=== PATIENT | female | born 1935 | race Two or more races ===

== ENCOUNTER 2019-05-22 18:31 | Inpatient (IN) | payer MEDICARE, OTHER ==
[~2019-05-22] VITALS: Ht 149.9 cm; Wt 46.7 kg
[2019-05-22] MEDS ORDERED: FENO145T21 PO (18:58)
[2019-05-22] MEDS ORDERED: DILT180C66 PO (18:58)
[2019-05-22] MEDS ORDERED: DONE5TAB34 PO (18:58)
[2019-05-22] MEDS ORDERED: ASPI81TA31 PO (18:58)
[2019-05-22] MEDS ORDERED: LEVO50TA8 PO (18:58)
[2019-05-22] MEDS ORDERED: FENO134C PO (18:58)
--- NOTE | 2019-05-22 19:21 | NUR ---
Xray at bedside.
[2019-05-22 19:31] LABS: BASOPHILS # (AUTO) 0.1 K/uL (0.0-8.0); BASOPHILS % (AUTO) 1.2 % (0.0-2.0); EOSINOPHILS # (AUTO) 0.2 K/uL (0.0-0.7); EOSINOPHILS % (AUTO) 3.4 % (0.0-7.0); HEMATOCRIT 37.8 % (31.2-41.9); HEMOGLOBIN 12.3 g/dL (10.9-14.3); LYMPHOCYTES # (AUTO) 2.4 K/uL (20.0-40.0); LYMPHOCYTES % (AUTO) 46.7 % (20.5-51.5); MEAN CORPUSCULAR HEMOGLOBIN 31.6 uug (24.7-32.8); MEAN CORPUSCULAR HGB CONC 33 g/dL (32.3-35.6); MEAN CORPUSCULAR VOLUME 97.3 fL (75.5-95.3); MONOCYTES # (AUTO) 0.4 K/uL (2.0-10.0); NEUTROPHILS # (AUTO) 2.1 K/uL (1.8-8.9); NEUTROPHILS % (AUTO) 41.7 % (38.5-71.5); PLATELET COUNT (AUTO) 253 K/uL (179-408); RED BLOOD CELL COUNT(AUTO) 3.88 MIL/uL (3.63-4.92); WHITE BLOOD COUNT (AUTO) 5.1 K/uL (3.8-11.8)
[2019-05-22 19:40] LABS: CARBON DIOXIDE 31 mmol/L (21-32); CHLORIDE 106 mmol/L (98-107); CREATININE 0.9 mg/dL (0.6-1.3); GLUCOSE 95 mg/dL (74-106); UREA NITROGEN, BLOOD 20 mg/dL (7-18)
[2019-05-22 19:46] LABS: ALANINE AMINOTRANSFERASE 14 U/L (14-59); ALKALINE PHOSPHATASE 53 U/L (50-136); ASPARTATE AMINOTRANSFERASE 21 U/L (15-37); BILIRUBIN,DIRECT 0.1 mg/dL (0.0-0.2); BILIRUBIN,TOTAL 0.1 mg/dL (0.2-1.0); TOTAL PROTEIN, SERUM 6.7 g/dL (6.4-8.2)
[2019-05-22 19:53] LABS: ETHANOL < 3 MG/DL (0-0)
[2019-05-22 19:57] LABS: ACETAMINOPHEN < 2.0 ug/mL (10-30)
[2019-05-22 20:03] LABS: *BILIRUBIN,URIN NEGATIVE (NEGATIVE); *BLOOD, URINE 1+ (NEGATIVE); *CLARITY,URINE HAZY (CLEAR); *COLOR,URINE YELLOW (YELLOW); *KETONES,URINE NEGATIVE (NEGATIVE); *UROBILINOGEN,URINE 0.2 E.U./dl (NORMAL); LEUKOCYTE ESTERASE ,URINE NEGATIVE (NEGATIVE); NITRITE, URINE NEGATIVE (NEGATIVE); UGLUCOSE NEGATIVE (NEGATIVE)
[2019-05-22 20:14] LABS: BACTERIA,URINE FEW /HPF (NONE SEEN); SQUAMOUS EPITHELIAL CELL,UR FEW /HPF (NONE SEEN); WBC,URINE 0-3 /HPF (0-3)
[2019-05-22 20:18] LABS: *AMPHETAMINE, URINE NEGATIVE (NEGATIVE); *BARBITURATE, URINE NEGATIVE (NEGATIVE); *CANNABINOID, URINE NEGATIVE (NEGATIVE); *COCCAINE, URINE NEGATIVE (NEGATIVE); *OPIATE, URINE NEGATIVE (NEGATIVE); *PHENCYCLIDINE SCREEN,URINE NEGATIVE (NEGATIVE)
--- NOTE | 2019-05-22 20:56 | NUR ---
Report given to JULIANNE Figueroa
--- NOTE | 2019-05-22 21:24 | NUR ---
Patient transported to MHU in stable condition.
[2019-05-22 21:30] VITALS: BP 162/47
[2019-05-22] MEDS ORDERED: MAG HYDROX/AL HYDROX/SIMETH 30 ML LIQUID UDC PO PRN (22:00)
[2019-05-22] MEDS ORDERED: MAGNESIUM HYDROXIDE 30 ML LIQUID UDC PO PRN (22:00)
[2019-05-22] MEDS ORDERED: BLOOD SUGAR DIAGNOSTIC 1 EACH STRIP VI ONE (22:00)
[2019-05-22] MEDS ORDERED: TEMAZEPAM 7.5 MG CAPSULE PO PRN (22:00)
[2019-05-22] MEDS ORDERED: LORAZEPAM 1 MG TABLET PO PRN (22:00)
--- NOTE | 2019-05-22 22:29 | NUR ---
Received to care, at 2120, on a 72 hour hold, for danger to self, from the emergency room, a transfer from [facility]. According to the hold, she attempted to commit suicide on 05/21/19 by hanging self. She also has a previous history or multiple suicide attempts, including an attempted overdose, 1 month ago. Upon arrival on the unit, she was pleasant and cooperative. She admitted to attempting to hang herself from the lemon tree, in her front yard. She stated she did this because her daughter in law is "mean" to her, and told her to "get out". She said she then became despondent, prompting the suicide attempt. She also admitted to making previous attempts. She admitted to still feeling suicidal, but agreed to contract for safety, while in the hospital. Upon arrival, a 1 to 1 sitter was assigned, to ensure safety. She was assisted with a shower, and in now in bed, with sitter at bedside. Pt was advised of her hold. patients rights booklet was provided. no distress noted. will continue to monitor closely.
--- NOTE | 2019-05-23 06:00 | NUR ---
slept 3 hours total. is now awake. 1 to 1 sitter remains at bedside. no distress noted.
[2019-05-23] MEDS: LEVOTHYROXINE SODIUM 50 MCG TABLET PO SCH (06:52)
[2019-05-23 07:30] VITALS: BP 132/45
[2019-05-23] MEDS: ASPIRIN 81 MG TAB.CHEW PO SCH (08:49)
[2019-05-23] MEDS: FENOFIBRATE NANOCRYSTALLIZED 145 MG TABLET PO SCH (08:49)
[2019-05-23] MEDS: DILTIAZEM HCL CD 120 MG CAP.SR.24H PO SCH (08:50)
[2019-05-23] MEDS ORDERED: DONEPEZIL 5 MG TABLET PO SCH (09:00)
--- NOTE | 2019-05-23 10:54 | NUR ---
Initial Discharge Note: Patient currently lives with her son, Roberto Carlos Lovell ([phone]) at [address] [place] [address] and would like to return after discharge. retail worker will continue to work with pt, family, and MD to ensure a safe and proper discharge plan.
--- NOTE | 2019-05-23 10:55 | NUR ---
Family Contact: Deputy Manager spoke with patient son, Roberto Carlos Lovell ([phone]) and primary caregiver and collected collateral information. Roberto Carlos shared that pt lives with him and his family and will return when stable. Roberto Carlos shared that she is going to file for conservatorship. Roberto Carlos stated that pt has prior suicide attempt and pt has a long history of depression.
--- NOTE | 2019-05-23 10:57 | NUR ---
Firearms Report ([employer]): Windows Architect completed and submitted a [employer] firearms report for 5150 grave disability and danger to self certification. A copy of report has been placed in patient chart.
[2019-05-23 16:25] VITALS: BP 133/46
[2019-05-23] MEDS: MIRTAZAPINE 15 MG TABLET PO SCH (20:08)
[2019-05-23] MEDS: RIVASTIGMINE TARTRATE 1.5 MG CAPSULE PO SCH (20:08)
--- NOTE | 2019-05-24 03:06 | NUR ---
GPS: Sleeping soundly at this time. In no form of distress noted. Sitter at bedside as ordered. Suicide precautions maintained.
[2019-05-24] MEDS: LEVOTHYROXINE SODIUM 50 MCG TABLET PO SCH (06:50)
[2019-05-24 07:52] VITALS: BP 139/49
[2019-05-24] MEDS: FENOFIBRATE NANOCRYSTALLIZED 145 MG TABLET PO SCH (08:31)
[2019-05-24] MEDS: ASPIRIN 81 MG TAB.CHEW PO SCH (08:31)
[2019-05-24] MEDS: DILTIAZEM HCL CD 120 MG CAP.SR.24H PO SCH (08:32)
--- NOTE | 2019-05-24 08:38 | NUR ---
Family Contact: Engineer Byproduct left a voicemail for patient's son, Roberto Carlos Lovell ([phone]) regarding discharge planning. Awaiting a call back.
[2019-05-24] MEDS: RIVASTIGMINE TARTRATE 1.5 MG CAPSULE PO SCH ×2 (09:37→21:31)
[2019-05-24 16:47] VITALS: BP 137/49
[2019-05-24 19:30] VITALS: BP_SYST 129; BP_SYST 152; BP_DIAS 38; BP_DIAS 40
[2019-05-24] MEDS: ACETAMINOPHEN 325 MG TABLET PO PRN (20:07)
[2019-05-24] MEDS: MIRTAZAPINE 15 MG TABLET PO SCH (21:31)
[2019-05-25] MEDS: LEVOTHYROXINE SODIUM 50 MCG TABLET PO SCH (06:31)
--- NOTE | 2019-05-25 06:37 | NUR ---
GPS: Showered at this time with help of assigned sitter. Continues to feel depressed but denies having a plan to hurt self. Re-assured prn. Will continue to monitor.
[2019-05-25 07:30] VITALS: BP 163/44
--- NOTE | 2019-05-25 07:30 | NUR ---
1:1 sitter at the bedside. Pt is sleeping well in bed. No apparent distress noted.
[2019-05-25] MEDS: FENOFIBRATE NANOCRYSTALLIZED 145 MG TABLET PO SCH (08:44)
[2019-05-25] MEDS: ASPIRIN 81 MG TAB.CHEW PO SCH (08:44)
[2019-05-25] MEDS: RIVASTIGMINE TARTRATE 1.5 MG CAPSULE PO SCH ×2 (08:44→20:40)
[2019-05-25] MEDS: DILTIAZEM HCL CD 120 MG CAP.SR.24H PO SCH (08:46)
--- NOTE | 2019-05-25 09:30 | NUR ---
Pt placed on [facility]. Cooperative, speaks only Japanese, eating good and independently.
--- NOTE | 2019-05-25 10:30 | NUR ---
Pt taking medications without any problem. Denies any suicidal ideation.
[2019-05-25 15:12] VITALS: BP 150/47
--- NOTE | 2019-05-25 18:08 | NUR ---
GPS: patient still on suicidal precaution, patient remain free of injury, will continue monitor
[2019-05-25 20:04] VITALS: BP 137/50
[2019-05-25] MEDS: MIRTAZAPINE 15 MG TABLET PO SCH (20:40)
[2019-05-25] MEDS ORDERED: MIRTAZAPINE 15 MG TABLET PO ONE (22:15)
[2019-05-26] MEDS: LEVOTHYROXINE SODIUM 50 MCG TABLET PO SCH (06:35)
[2019-05-26 07:30] VITALS: BP_SYST 105; BP_SYST 151; BP_DIAS 49; BP_DIAS 56
[2019-05-26] MEDS: RIVASTIGMINE TARTRATE 1.5 MG CAPSULE PO SCH ×2 (08:45→20:27)
[2019-05-26] MEDS: ASPIRIN 81 MG TAB.CHEW PO SCH (08:45)
[2019-05-26] MEDS: DILTIAZEM HCL CD 120 MG CAP.SR.24H PO SCH (08:46)
[2019-05-26] MEDS: FENOFIBRATE NANOCRYSTALLIZED 145 MG TABLET PO SCH (08:46)
[2019-05-26 16:00] VITALS: BP 128/48
[2019-05-26 20:09] VITALS: BP 120/70
--- NOTE | 2019-05-26 20:15 | NUR ---
Received patient in her bed, 1 to 1 nurse by the bedside. No behavioral issue at this time, med compliant. No sign or symptom of resp. distress, no pain or discomfort. Will continue to monitor for patient safety.
[2019-05-26] MEDS: MIRTAZAPINE 15 MG TABLET PO SCH (20:27)
[2019-05-26] MEDS: ACETAMINOPHEN 325 MG TABLET PO PRN (20:40)
[2019-05-27] MEDS: LEVOTHYROXINE SODIUM 50 MCG TABLET PO SCH (06:31)
[2019-05-27 07:30] VITALS: BP 169/44
[2019-05-27] MEDS: FENOFIBRATE NANOCRYSTALLIZED 145 MG TABLET PO SCH (08:23)
[2019-05-27] MEDS: DILTIAZEM HCL CD 120 MG CAP.SR.24H PO SCH (08:23)
[2019-05-27] MEDS: ASPIRIN 81 MG TAB.CHEW PO SCH (08:24)
[2019-05-27] MEDS: RIVASTIGMINE TARTRATE 1.5 MG CAPSULE PO SCH ×2 (08:24→20:22)
--- NOTE | 2019-05-27 09:05 | NUR ---
PC Hearing Notification: Top Stop Attacher left a voicemail for patient's son, Roberto Carlos Lovell ([phone]) regarding patient's probable cause hearing this afternoon.
[2019-05-27 16:57] VITALS: BP 122/46
[2019-05-27] MEDS: MIRTAZAPINE 15 MG TABLET PO SCH (20:22)
[2019-05-27 20:36] VITALS: BP 115/51
--- NOTE | 2019-05-27 22:00 | NUR ---
received to care, lying in bed, isolative, but pleasant upon approach. pt denies suicidal ideations currently, but admitted to it, earlier. 1 to 1 sitter remains at side at all times, for safety. compliant with medications and staff direction. as of 2199, she appears to be asleep. no dsitress noted. will continue to monitor closely.
--- NOTE | 2019-05-28 06:00 | NUR ---
slept 5.5 hours total. continues to sleep. 1 to 1 sitter remains at the bedside. no distress noted. will continue to monitor closely.
[2019-05-28] MEDS: LEVOTHYROXINE SODIUM 50 MCG TABLET PO SCH (06:40)
[2019-05-28 07:47] VITALS: BP 144/51
[2019-05-28] MEDS: RIVASTIGMINE TARTRATE 1.5 MG CAPSULE PO SCH ×2 (08:27→20:08)
[2019-05-28] MEDS: FENOFIBRATE NANOCRYSTALLIZED 145 MG TABLET PO SCH (08:28)
[2019-05-28] MEDS: DILTIAZEM HCL CD 120 MG CAP.SR.24H PO SCH (08:28)
[2019-05-28] MEDS: ASPIRIN 81 MG TAB.CHEW PO SCH (08:28)
[2019-05-28 16:52] VITALS: BP 123/54
[2019-05-28 19:55] VITALS: BP 139/52
[2019-05-28] MEDS: MIRTAZAPINE 15 MG TABLET PO SCH (20:08)
--- NOTE | 2019-05-29 05:48 | NUR ---
GPS: Continue on 1:1 sitter for safety. slept 7:45 hours total. no agitation noted. denies SI @ this time. 1 to 1 sitter remains at the bedside. no distress noted. will continue to monitor closely.
[2019-05-29] MEDS: LEVOTHYROXINE SODIUM 50 MCG TABLET PO SCH (06:30)
[2019-05-29 07:38] VITALS: BP 134/49
[2019-05-29] MEDS: RIVASTIGMINE TARTRATE 1.5 MG CAPSULE PO SCH ×2 (08:25→20:17)
[2019-05-29] MEDS: FENOFIBRATE NANOCRYSTALLIZED 145 MG TABLET PO SCH (08:25)
[2019-05-29] MEDS: DILTIAZEM HCL CD 120 MG CAP.SR.24H PO SCH (08:26)
[2019-05-29] MEDS: ASPIRIN 81 MG TAB.CHEW PO SCH (08:26)
[2019-05-29] MEDS: ACETAMINOPHEN 325 MG TABLET PO PRN (16:09)
[2019-05-29 16:41] VITALS: BP 144/38
[2019-05-29 20:00] VITALS: BP 144/45
[2019-05-29] MEDS: MIRTAZAPINE 15 MG TABLET PO SCH (20:17)
[2019-05-30] MEDS: LEVOTHYROXINE SODIUM 50 MCG TABLET PO SCH (06:36)
[2019-05-30 07:30] VITALS: BP 124/45
[2019-05-30] MEDS: FENOFIBRATE NANOCRYSTALLIZED 145 MG TABLET PO SCH (08:27)
[2019-05-30] MEDS: DILTIAZEM HCL CD 120 MG CAP.SR.24H PO SCH (08:27)
[2019-05-30] MEDS: ASPIRIN 81 MG TAB.CHEW PO SCH (08:27)
[2019-05-30] MEDS: RIVASTIGMINE TARTRATE 1.5 MG CAPSULE PO SCH ×2 (08:27→20:35)
[2019-05-30 16:02] VITALS: BP 130/54
[2019-05-30 20:20] VITALS: BP 114/44
[2019-05-30] MEDS: MIRTAZAPINE 15 MG TABLET PO SCH (20:35)
--- NOTE | 2019-05-30 21:04 | NUR ---
GPS: Pt.transferred to [id number] in stable condition. Report given to Mary GARCIA.
--- NOTE | 2019-05-30 21:10 | NUR ---
PT IN NO ACUTE DISTRESS. SITTER AT BEDSIDE FOR SAFETY. PT IN NO ACUTE DISTRESS. NO SUICIDAL IDEATION NOTED. SAFETY AND COMFORT PROVIDED. WILL CONTINUE TO MONITOR.
[2019-05-31] MEDS ORDERED: TEMAZEPAM 7.5 MG CAPSULE PO PRN (05:30)
[2019-05-31] MEDS ORDERED: LORAZEPAM 1 MG TABLET PO PRN (05:30)
[2019-05-31] MEDS: LEVOTHYROXINE SODIUM 50 MCG TABLET PO SCH (06:33)
--- NOTE | 2019-05-31 06:41 | NUR ---
PT SLEPT 7 HOURS. PT IN NO ACUTE DISTRESS. SITTER AT BEDSIDE. SAFETY AND COMFORT PROVIDED. WILL ENDORSE TO INCOMING NURSE FOR CONTINUITY OF CARE.
[2019-05-31] MEDS: RIVASTIGMINE TARTRATE 1.5 MG CAPSULE PO SCH ×2 (08:28→20:22)
[2019-05-31] MEDS: FENOFIBRATE NANOCRYSTALLIZED 145 MG TABLET PO SCH (08:28)
[2019-05-31] MEDS: ASPIRIN 81 MG TAB.CHEW PO SCH (08:28)
[2019-05-31] MEDS: DILTIAZEM HCL CD 120 MG CAP.SR.24H PO SCH (08:43)
--- NOTE | 2019-05-31 09:02 | NUR ---
Social Work Note/Family Contact: Casino Host spoke with patient's son, Roberto Carlos Lovell ([phone]) who stated that they would like patient to be discharged tomorrow morning back home. YOVANA stated she would have to speak with the psychiatrist and inform them later today. Casino Host will work on patient's after care provider appointments. Addendum: 05/31/19 at 1615 by TRENT BEASLEY YOVANA spoke with the covering psychiatrist, Dr. Paul who stated that we would have to wait for Dr. Gutierrez to assess the patient and set up discharge. speeder worker informed pt's son Roberto Carlos ([phone]) of this information who was very understanding.
[2019-05-31 12:00] VITALS: BP 138/44
--- NOTE | 2019-05-31 16:15 | NUR ---
Social Work Note/Individual Counseling: Preparation Room Worker met with patient today and provided brief individual counseling and emotional support and assess for level of suicidality. Patient denied any suicidal ideation at this time and stated that she is feeling better and would like to return home.
--- NOTE | 2019-05-31 18:10 | NUR ---
PATIENT TRANSFER FROM ROOM 323 TO MHU ROOM 139 , COMPLIANT WITH CARE AND MEDS , NO C/O PAIN AT THIS TIME. ESCORT PATIENT VIA WHEELCHAIR. DENIES ANY SI/HI.
--- NOTE | 2019-05-31 18:12 | NUR ---
GPS: Nursing Notes: Transfer From Overflow: Patient transfer from room # 323 to room # 139-A, cooperative with staff, A/Ox3, following staff directions, ambulatory, compliant with her medications, verbally rich for safety, denies SI, depressed mood and restricted affect, continue to monitor for safety, continue with treatment plan.
[2019-05-31 20:10] VITALS: BP 141/51
[2019-05-31] MEDS: MIRTAZAPINE 15 MG TABLET PO SCH (20:22)
[2019-05-31] MEDS: ACETAMINOPHEN 325 MG TABLET PO PRN (20:25)
[2019-06-01 06:21] LABS: BASOPHILS # (AUTO) 0.1 K/uL (0.0-8.0); BASOPHILS % (AUTO) 1.1 % (0.0-2.0); EOSINOPHILS # (AUTO) 0.3 K/uL (0.0-0.7); EOSINOPHILS % (AUTO) 6.4 % (0.0-7.0); HEMATOCRIT 34.5 % (31.2-41.9); HEMOGLOBIN 11.6 g/dL (10.9-14.3); LYMPHOCYTES # (AUTO) 2.7 K/uL (20.0-40.0); MEAN CORPUSCULAR HEMOGLOBIN 32.3 uug (24.7-32.8); MEAN CORPUSCULAR HGB CONC 34 g/dL (32.3-35.6); MEAN CORPUSCULAR VOLUME 96.5 fL (75.5-95.3); MONOCYTES # (AUTO) 0.5 K/uL (2.0-10.0); MONOCYTES % (AUTO) 9.7 % (0.0-11.0); NEUTROPHILS # (AUTO) 1.4 K/uL (1.8-8.9); NEUTROPHILS % (AUTO) 28.8 % (38.5-71.5); PLATELET COUNT (AUTO) 258 K/uL (179-408); RED BLOOD CELL COUNT(AUTO) 3.58 MIL/uL (3.63-4.92)
[2019-06-01] MEDS: LEVOTHYROXINE SODIUM 50 MCG TABLET PO SCH (06:32)
[2019-06-01 06:48] LABS: THYROID STIMULATING HORMONE 0.811 mIU/mL (0.358-3.740)
[2019-06-01 07:30] VITALS: BP 131/51
[2019-06-01 07:32] LABS: BILIRUBIN,TOTAL 0.2 mg/dL (0.2-1.0); CREATININE 0.9 mg/dL (0.6-1.3); PHOSPHOROUS 3.6 mg/dL (2.5-4.9); POTASSIUM 4.2 mmol/L (3.5-5.1); TOTAL PROTEIN, SERUM 6.6 g/dL (6.4-8.2)
[2019-06-01] MEDS: FENOFIBRATE NANOCRYSTALLIZED 145 MG TABLET PO SCH (08:00)
[2019-06-01] MEDS: DILTIAZEM HCL CD 120 MG CAP.SR.24H PO SCH (09:00)
[2019-06-01] MEDS: RIVASTIGMINE TARTRATE 1.5 MG CAPSULE PO SCH ×2 (09:28→20:09)
[2019-06-01] MEDS: ASPIRIN 81 MG TAB.CHEW PO SCH (09:28)
[2019-06-01 16:00] VITALS: BP 125/40
[2019-06-01 20:06] VITALS: BP 136/51
[2019-06-01] MEDS: MIRTAZAPINE 15 MG TABLET PO SCH (20:09)
--- NOTE | 2019-06-01 20:30 | NUR ---
RECEIVED PATIENT IN HER ROOM IN BED. SHE IS NOTED AWAKE A/O X 2. SHE IS CALM AND PLEASANT UPON APPROACHED. SHE IS ABLE TO AMBULATE WITH STEADY GAIT AND ABLE TO MAKE HER NEEDS KNOWN. DENIES SI/VH/AH. SHE IS ABLE TO CFS. V/S STABLE AT THIS TIME. PATIENT IS REASSURED FOR HER SAFETY. SAFETY AND FALL PRECAUTION IN PLACE. WILL CONTINUE TO MONITOR.
[2019-06-01] MEDS: ACETAMINOPHEN 325 MG TABLET PO PRN (20:44)
[2019-06-02] MEDS: LEVOTHYROXINE SODIUM 50 MCG TABLET PO SCH (06:38)
[2019-06-02 07:30] VITALS: BP 150/49
--- NOTE | 2019-06-02 08:00 | NUR ---
Received patient asleep with unlabored respirations .easily wake up, pt compliant with medications and diets fair continue to provide a safe environment
[2019-06-02] MEDS: RIVASTIGMINE TARTRATE 1.5 MG CAPSULE PO SCH (09:47)
[2019-06-02] MEDS: FENOFIBRATE NANOCRYSTALLIZED 145 MG TABLET PO SCH (09:47)
[2019-06-02 09:48] VITALS: BP 150/49
[2019-06-02] MEDS: ASPIRIN 81 MG TAB.CHEW PO SCH (09:48)
[2019-06-02] MEDS: DILTIAZEM HCL CD 120 MG CAP.SR.24H PO SCH (09:48)
--- NOTE | 2019-06-02 11:24 | NUR ---
Social Work/Discharge Note: Patient will be discharged today back home [address] [place] [address] ([phone]). Patient will be picked up by her son, Lalit Sanchez ([phone]) between 1-2pm. Patient is alert and oriented times 4 and presents with calm mood and full range affect. Patient denies suicidal or homicidal ideation and is able to plan for self-care. Patient is aware and agreeable with discharge plans. Patient will be following up with her primary care physician Dr. Connie Tenorio [address] [place] [id number] ([phone]) and has an appointment scheduled on Friday June 14, 2019 at 2:30pm. Patient was also referred for outpatient psychiatric services at [facility] in [address] [address] ([phone]), and spoke with Avis who stated that their intake department, Avis will be contacting the patients son directly to schedule an initial appointment to see a psychiatrist. Patient was also provided with [facility] for outpatient psychiatric services to their walk-in clinic [address] [place] [address] ([phone]), spoke with Clinton who confirmed. Patient will also be provided with in home health services to ensure medication management, shower assistance, and physical therapy by [facility] ([phone]), and have an initial assessment scheduled for June 03, 2019 at 12pm. Parking Regulation Enforcement Officer also provided [facility] Crisis Line , and the National Suicide Prevention Lifeline .
--- NOTE | 2019-06-02 12:00 | NUR ---
PATIENT c/o headache medicated with tylenol 650mg , good results after 15 minutes
[2019-06-02] MEDS: ACETAMINOPHEN 325 MG TABLET PO PRN (12:01)
--- NOTE | 2019-06-02 13:41 | NUR ---
patient discharged home with family and no suicidal ideation talat CRUM PICKED UP
== END 2019-06-02 15:00 | disposition home health service (06) | DRG 881 ==
LOC: ER 18:39 → GPS 21:08 → GPSOV3 05-30 20:48 → GPS 05-31 18:08
PROVIDERS: ADMIT Psychiatry & Neurology Psychiatry; ATTEND Nurse Practitioner Acute Care
DX: F32.9 Major depressive disorder, single episode, unspecified (principal); S10.93XD Contusion of unspecified part of neck, subsequent encounter; X83.8XXD Intentional self-harm by other specified means, subsequent encounter; E03.9 Hypothyroidism, unspecified; E78.5 Hyperlipidemia, unspecified; F03.90 Unspecified dementia, unspecified severity, without behavioral disturbance, psychotic disturbance, mood disturbance, and anxiety; Z90.710 Acquired absence of both cervix and uterus; Z86.73 Personal history of transient ischemic attack (TIA), and cerebral infarction without residual deficits; I10 Essential (primary) hypertension; D75.89 Other specified diseases of blood and blood-forming organs; Z79.82 Long term (current) use of aspirin; Z79.899 Other long term (current) drug therapy; Z87.891 Personal history of nicotine dependence; Z91.5 Personal history of self-harm
CPT/HCPCS: 36415; 70030-TC; 71045; 80307; 83735; 84100; 84443; 85025; 93005; A4663; G0480; G0480-TC